=== PATIENT | male | born 1975 | race Caucasian/White ===

== ENCOUNTER 2017-04-16 04:32 | Emergency (ER) | payer MEDICAID, OTHER ==
[~2017-04-16] VITALS: Ht 180.3 cm; Wt 72.6 kg
[~2017-04-16 04:32] MED LIST: ESCI20TA PO; LITH300C2 PO; LURA80TA PO
[2017-04-16] MEDS ORDERED: GABA300C PO (04:45)
[2017-04-16] MEDS ORDERED: [UNRECOGNIZED DRUG - OTHER] (04:45)
[2017-04-16] MEDS ORDERED: [UNRECOGNIZED DRUG - REMARK] (04:45)
--- NOTE | 2017-04-16 04:50 | NUR ---
Pt to room and changed into gown. Pt c/o SI. sts his plan is to either "take all my pills" or "walk into traffic." Pt has previous SI attempt of walking into traffic. Pt denies HI. Pt denies visual hallucinations but admits to auditory hallucinations. Pt admits to daily etoh, approx 40oz daily. Admits to drug use. Last used meth 2 days ago. Pt calm and cooperative. Pt resting in position of comfort for self. Awaiting further eval.
[2017-04-16 05:28] LABS: BASOPHILS # (AUTO) 0.2 K/uL (0.0-8.0); BASOPHILS % (AUTO) 2.2 % (0.0-2.0); EOSINOPHILS # (AUTO) 0.1 K/uL (0.0-0.7); EOSINOPHILS % (AUTO) 1.3 % (0.0-7.0); HEMATOCRIT 38.4 % (40-50); HEMOGLOBIN 12.6 G/DL (14.0-18.0); LYMPHOCYTES # (AUTO) 2.4 K/UL (0.8-4.8); LYMPHOCYTES % (AUTO) 29.7 % (20.5-51.5); MEAN CORPUSCULAR HEMOGLOBIN 28.7 UUG (27.0-31.0); MEAN CORPUSCULAR HGB CONC 33 g/dL (32.0-37.0); MEAN CORPUSCULAR VOLUME 87.2 FL (82.0-92.0); MONOCYTES # (AUTO) 0.7 K/UL (0.1-1.30); MONOCYTES % (AUTO) 8.8 % (0.0-11.0); NEUTROPHILS # (AUTO) 4.7 K/UL (1.8-8.9); PLATELET COUNT (AUTO) 285 K/UL (150-450); WHITE BLOOD COUNT (AUTO) 8.1 K/UL (4.0-11.2)
[2017-04-16 05:48] LABS: ETHANOL < 3 MG/DL (0-0)
[2017-04-16 05:50] LABS: ALANINE AMINOTRANSFERASE 81 U/L (16-63); ALKALINE PHOSPHATASE 74 U/L (50-136); ASPARTATE AMINOTRANSFERASE 50 U/L (15-37); BILIRUBIN,DIRECT 0.2 mg/dL (0.0-0.2); BILIRUBIN,TOTAL 0.6 mg/dL (0.2-1.0); CARBON DIOXIDE 27 mmol/L (21-32); CHLORIDE 105 mmol/L (98-107); CREATININE 0.9 mg/dL (0.6-1.3); GLUCOSE 96 mg/dL (74-106); POTASSIUM 3.4 mmol/L (3.5-5.1); TOTAL PROTEIN, SERUM 6.7 g/dL (6.4-8.2); UREA NITROGEN, BLOOD 10 mg/dL (7-18)
[2017-04-16 05:52] LABS: ACETAMINOPHEN < 2.0 ug/mL (10-30)
--- NOTE | 2017-04-16 06:15 | NUR ---
Pt medically cleared by Dr. Leary
--- NOTE | 2017-04-16 06:33 | NUR ---
Jorge Arango contacted for PET evaluation, ETA 60 min.
--- NOTE | 2017-04-16 07:24 | NUR ---
Report given to MARION Diez. Relinquish care of pt at this time. Pt resting in position of comfort for self. Resp even and unlabored. No obvious signs of distress. Pt calm and cooperative. Awaiting PET eval.
--- NOTE | 2017-04-16 07:48 | NUR ---
Patient is resting comfortably in bed with eyes closed, NAD noted.
--- NOTE | 2017-04-16 08:05 | NUR ---
IRMA UPTON FROM PET CALLED AND STATED HE WILL COME TO EVALUATE PT IN 45 MIN. PROVIDED BREAKFAST BUT PT REMAINES SLEEPING.
--- NOTE | 2017-04-16 09:01 | NUR ---
PET CONTROL PANEL ASSEMBLER AT THE BEDSIDE FOR PSYCH EVAL. PT IS AWAKE AND COOPERATIVE.
--- NOTE | 2017-04-16 10:03 | NUR ---
PER IRMA UPTON PT WILL BE TX AND ADMITTED VOLONTARY TO [facility].
--- NOTE | 2017-04-16 10:04 | NUR ---
CALLED [facility] FOR TX. PT IS RESTING IN BED W/ BOTH EYES CLOSED.
--- NOTE | 2017-04-16 10:15 | NUR ---
REPORT GIVEN TO YARELY) AT THE FACILITY.
[2017-04-16 10:40] LABS: *BILIRUBIN,URIN NEGATIVE (NEGATIVE); *BLOOD, URINE NEGATIVE (NEGATIVE); *CLARITY,URINE CLEAR (CLEAR); *COLOR,URINE YELLOW (YELLOW); *KETONES,URINE NEGATIVE (NEGATIVE); *PROTEIN,URINE NEGATIVE (NEGATIVE); LEUKOCYTE ESTERASE ,URINE NEGATIVE (NEGATIVE); NITRITE, URINE NEGATIVE (NEGATIVE); PH,URINE 6.5 (5.0-8.0); UGLUCOSE NEGATIVE (NEGATIVE)
[2017-04-16 10:51] LABS: BACTERIA,URINE FEW /HPF (NONE SEEN); MUCUS,URINE FEW /LPF (0-FEW); RBC,URINE NONE SEEN /HPF (0-3); SQUAMOUS EPITHELIAL CELL,UR FEW /HPF (NONE SEEN); WBC,URINE 0-3 /HPF (0-3)
[2017-04-16 10:54] LABS: *AMPHETAMINE, URINE POSITIVE (NEGATIVE); *BARBITURATE, URINE NEGATIVE (NEGATIVE); *CANNABINOID, URINE NEGATIVE (NEGATIVE); *COCCAINE, URINE NEGATIVE (NEGATIVE); *OPIATE, URINE NEGATIVE (NEGATIVE); *PHENCYCLIDINE SCREEN,URINE NEGATIVE (NEGATIVE)
--- NOTE | 2017-04-16 11:22 | NUR ---
RECIEVED URINE RESULT AND FAXED TO [facility].
--- NOTE | 2017-04-16 11:35 | NUR ---
PER IRMA UPTON PT IS CLEARED BY INTAKE TO BE TX. CALLED [facility], ETA 45 MIN.
--- NOTE | 2017-04-16 12:46 | NUR ---
REPORT GIVEN TO EMT'S. PT LEFT ER IN STEADY CONDITION, ALL BELONGINGS SENT W/ PT.
[2017-04-16 12:48] VITALS: BP 144/77
== END 2017-04-16 12:49 | disposition short-term general hospital (02) ==
LOC: ER 04:35
DX: F15.90 Other stimulant use, unspecified, uncomplicated (principal); F31.9 Bipolar disorder, unspecified; F20.9 Schizophrenia, unspecified; F10.20 Alcohol dependence, uncomplicated; F19.10 Other psychoactive substance abuse, uncomplicated; Z59.0 Homelessness; Z86.19 Personal history of other infectious and parasitic diseases
CPT/HCPCS: 36415; 80307; 85025; A4663; G0480; G0480-TC

== ENCOUNTER 2017-06-28 22:40 | Emergency (ER) | payer MEDICAID, OTHER ==
[~2017-06-28] VITALS: Ht 180.3 cm; Wt 72.6 kg
[~2017-06-28 22:40] MED LIST changes: -ESCI20TA PO; +GABA300C PO; -LITH300C2 PO; -LURA80TA PO; +[UNRECOGNIZED DRUG - OTHER]; +[UNRECOGNIZED DRUG - REMARK]
--- NOTE | 2017-06-28 23:24 | NUR ---
Pt walked out of room and the ER after just being placed in room by triage nurse. Dr. Mcgee aware and charge nurse
--- NOTE | 2017-06-28 23:30 | NUR ---
Pt noted to have returned to room.
--- NOTE | 2017-06-28 23:40 | NUR ---
Pt seen walking out of ER after instructed to stay in his room.
--- NOTE | 2017-06-28 23:45 | NUR ---
Pt has not returned to room
--- NOTE | 2017-06-29 | NUR ---
Pt still not returned to room, not in waiting room, not in br and not located outside.
--- NOTE | 2017-06-29 00:05 | NUR ---
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
== END 2017-06-29 00:05 | disposition left against medical advice (07) ==
LOC: ER 22:40
DX: Z53.21 Procedure and treatment not carried out due to patient leaving prior to being seen by health care provider (principal)
CPT/HCPCS: A4663

== ENCOUNTER 2017-10-06 22:35 | Inpatient (IN) | payer MEDICAID ==
[~2017-10-06] VITALS: Ht 180.3 cm; Wt 81.2 kg
[2017-10-06] MEDS ORDERED: LITHIUM (23:28)
[2017-10-06] MEDS ORDERED: ABILIFY (23:28)
[2017-10-06] MEDS ORDERED: LEXAPRO (23:28)
[2017-10-06] MEDS ORDERED: ALBUTEROL SULFATE 2.5 MG/3 ML NEBU NEB ONE (23:45)
[2017-10-06] MEDS ORDERED: IBUPROFEN 800 MG TABLET PO ONE (23:45)
[2017-10-06] MEDS ORDERED: BENZONATATE 100 MG CAPSULE PO ONE (23:45)
--- NOTE | 2017-10-06 23:45 | NUR ---
Pt ambulated to room with steady gait. Pt c/o cough, fever and chills. Pt was seen at [facility] was diagnosed with PNA, received ABT but left AMA. Pt resting in position of comfort for self. Awaiting further eval.
--- NOTE | 2017-10-06 23:55 | NUR ---
Pt seen by Dr. Villanueva, pt medicated for discomfort and coughing, will monitor for effects of medication.
[2017-10-07] MEDS ORDERED: BENZONATATE 100 MG CAPSULE ONE (00:06)
[2017-10-07] MEDS ORDERED: IBUPROFEN 800 MG TABLET ONE (00:06)
[2017-10-07] MEDS ORDERED: ALBUTEROL SULFATE 2.5 MG/3 ML NEBU ONE (00:16)
[2017-10-07] MEDS ORDERED: IV NORMAL SALINE 1000 ML BAG IV ONE (00:45)
--- NOTE | 2017-10-07 00:58 | NUR ---
Pt refusing lab draw. Dr. Villanueva notified and to bedside to speak with pt
--- NOTE | 2017-10-07 01:30 | NUR ---
Pt resting in position of comfort for self, no obvious signs of distress at this time. Fluid bolus infusing freely to gravity.
[2017-10-07] MEDS ORDERED: ARIP10TA9 PO (01:36)
[2017-10-07] MEDS ORDERED: ESCI10TA PO (01:36)
[2017-10-07] MEDS ORDERED: ARIP5TAB10 PO (01:36)
[2017-10-07] MEDS ORDERED: LITH600C PO (01:36)
[2017-10-07] MEDS ORDERED: LORAZEPAM 2 MG/1 ML VIAL IV ONE (01:45)
[2017-10-07 01:47] LABS: BASOPHILS # (AUTO) 0.1 K/uL (0.0-8.0); BASOPHILS % (AUTO) 0.4 % (0.0-2.0); EOSINOPHILS % (AUTO) 0.1 % (0.0-7.0); HEMOGLOBIN 14.5 g/dL (12.5-16.3); LYMPHOCYTES # (AUTO) 2.3 K/uL (20.0-40.0); LYMPHOCYTES % (AUTO) 10.9 % (20.5-51.5); MEAN CORPUSCULAR HEMOGLOBIN 30.2 uug (23.8-33.4); MEAN CORPUSCULAR HGB CONC 35 g/dL (32.5-36.3); MEAN CORPUSCULAR VOLUME 87.6 fL (73.0-96.2); MONOCYTES # (AUTO) 2.9 K/uL (2.0-10.0); MONOCYTES % (AUTO) 13.7 % (0.0-11.0); NEUTROPHILS # (AUTO) 15.8 K/uL (1.8-8.9); NEUTROPHILS % (AUTO) 74.9 % (38.5-71.5); PLATELET COUNT (AUTO) 224 K/uL (152-348); RED BLOOD CELL COUNT(AUTO) 4.79 MIL/uL (4.06-5.63); WHITE BLOOD COUNT (AUTO) 21.1 K/uL (3.6-10.2)
[2017-10-07] MEDS ORDERED: LORAZEPAM 2 MG/1 ML VIAL ONE (01:57)
[2017-10-07 02:03] LABS: BILIRUBIN,DIRECT 0.2 mg/dL (0.0-0.2); POTASSIUM 4.2 mmol/L (3.5-5.1); TOTAL PROTEIN, SERUM 7.3 g/dL (6.4-8.2)
--- NOTE | 2017-10-07 03:44 | NUR ---
Pt had severe coughing fit that induced an episode of vomiting. Dr. Villanueva notified and pt medicated, will monitor for effects of medication.
[2017-10-07] MEDS ORDERED: ONDANSETRON 4 MG/2 ML VIAL IV ONE (03:45)
[2017-10-07] MEDS ORDERED: ONDANSETRON 4 MG/2 ML VIAL ONE (03:57)
[2017-10-07] MEDS ORDERED: HYDROCODONE BIT/HOMATROPINE 5 ML UDC PO ONE (04:00)
[2017-10-07] MEDS ORDERED: HYDROCODONE BIT/HOMATROPINE 5 ML UDC ONE (04:15)
--- NOTE | 2017-10-07 04:30 | NUR ---
Coughing has improved. Pt resting in position of comfort for self with eyes closed, resp even and unlabored. No obvious signs of distress at this time.
--- NOTE | 2017-10-07 05:36 | NUR ---
Report given to MARION Wilcox. Preparing to transfer pt to the floor.
[2017-10-07] MEDS ORDERED: ONDANSETRON 4 MG/2 ML VIAL IV PRN (05:45)
[2017-10-07] MEDS ORDERED: HYDROCODONE/APAP 5-325MG TABLET PO PRN (05:45)
[2017-10-07] MEDS ORDERED: MAGNESIUM HYDROXIDE 30 ML LIQUID UDC PO PRN (05:45)
[2017-10-07] MEDS ORDERED: ACETAMINOPHEN 325 MG TABLET PO PRN (05:45)
[2017-10-07] MEDS ORDERED: ZOLPIDEM 5 MG TABLET PO PRN (05:45)
[2017-10-07] MEDS ORDERED: ALBUTEROL SULFATE 2.5 MG/3 ML NEBU NEB PRN (05:45)
--- NOTE | 2017-10-07 05:55 | NUR ---
Recieved pt from [facility] Rn to rm 107 pt valuable list done by Mail Distribution Scheme Examiner v/s done admission report paper done. Side rails up Call ilight within reach. bed in lowest position wheels locked.
--- NOTE | 2017-10-07 07:00 | NUR ---
PT IS SLEEPING IN BED COMFORTABLY, NO S/S OF RESPIRATORY DISTRESS NOTED. ALL SAFETY NEEDS ARE MET. IV INTACT/PATENT. NO PAIN NOTED. PT IS AXO X 3, COOPERATIVE.
[2017-10-07 07:07] VITALS: BP 118/82
[2017-10-07 07:14] VITALS: BP 119/78
[2017-10-07] MEDS: PANTOPRAZOLE SODIUM 40 MG TABLET.DR PO SCH (08:16)
[2017-10-07] MEDS: AZITHROMYCIN IV 500 MG in IV DEXTROSE 5% 250 ML IV SCH (08:35)
[2017-10-07] MEDS ORDERED: ARIPIPRAZOLE 10 MG TABLET PO SCH (09:00)
[2017-10-07] MEDS ORDERED: LITHIUM CARBONATE 600 MG PO SCH (09:00)
[2017-10-07] MEDS: CEFTRIAXONE 1 G in IV DEXTROSE 5% 50 ML IV SCH (09:37)
[2017-10-07] MEDS: LITHIUM CARBONATE 300 MG CAPSULE PO SCH ×2 (11:26→17:23)
[2017-10-07] MEDS: ARIPIPRAZOLE 10 MG TABLET PO SCH (13:08)
[2017-10-07] MEDS: ESCITALOPRAM OXALATE 10 MG TABLET PO SCH (13:08)
--- NOTE | 2017-10-07 14:00 | NUR ---
PT REFUSES TO HAVE NC, ENCOURAGE THE PT TO TAKE DEEP BREATHS.
--- NOTE | 2017-10-07 14:01 | NUR ---
the patient and the mother asked about the psych plan of care for the pt. Tried to find out more information from Crisis team note from [facility]. It states that the patient is a "59 year old female". Called nurse air cargo ground operations supervisor to assist in finding out the status of the pt since the note mentioning [id number] status, but there's no [paperwork in regards of the patient's hold. Paged [facility], left voice message to clarify the note and the patient status, whether or not there is a hold for the patient.
[2017-10-07 15:00] VITALS: BP 119/78
[2017-10-07] MEDS: IV NS 1000 ML 1,000 ML IV PRN (15:44)
[2017-10-07 16:34] LABS: *BILIRUBIN,URIN NEGATIVE (NEGATIVE); *BLOOD, URINE NEGATIVE (NEGATIVE); *CLARITY,URINE SLIGHTLY CLOUDY (CLEAR); *COLOR,URINE YELLOW (YELLOW); *KETONES,URINE NEGATIVE (NEGATIVE); *PROTEIN,URINE NEGATIVE (NEGATIVE); LEUKOCYTE ESTERASE ,URINE NEGATIVE (NEGATIVE); NITRITE, URINE NEGATIVE (NEGATIVE); UGLUCOSE NEGATIVE (NEGATIVE)
[2017-10-07 16:48] LABS: BACTERIA,URINE NONE SEEN /HPF (NONE SEEN); RBC,URINE 0-3 /HPF (0-3); SQUAMOUS EPITHELIAL CELL,UR NONE SEEN /HPF (NONE SEEN); WBC,URINE 0-3 /HPF (0-3)
--- NOTE | 2017-10-07 18:00 | NUR ---
[facility], PSYCH DOCTOR IS AWARE ABOUT THE PT'S PSYCH CONSULT, THE PT HAS BEEN COOPERATIVE AND CALM THROUGHOUT THE SHIFT. SLEPT FOR APPROXIMATELY FOR 8 HOURS.
--- NOTE | 2017-10-07 19:05 | NUR ---
PT IS LAYING IN BED COMFORTABLY, NO S/S OF RESPIRATORY DISTRESS NOTED. ALL SAFETY NEEDS ARE MET. IV INTACT/PATENT, INFUSING NS. NO PAIN NOTED. PT IS AXO X 3, COOPERATIVE. NO OTHER CHANGES NOTED.
[2017-10-07] MEDS ORDERED: ARIPIPRAZOLE 5 MG TABLET PO SCH (21:00)
[2017-10-07] MEDS: ARIPIPRAZOLE 5 MG TABLET PO SCH (21:16)
--- NOTE | 2017-10-08 00:55 | NUR ---
Pt lying in bed eyes closed resp even and unlabored Iv N.S. 0.9% infusing @ 75 cc hr to to right ac no edema or redness noted. Denies of any distress. side rails up call light within reach bed in lowest position. wheels locked.
[2017-10-08] MEDS: PANTOPRAZOLE SODIUM 40 MG TABLET.DR PO SCH (06:33)
--- NOTE | 2017-10-08 06:44 | NUR ---
Lying in bed eyes closed resp even and unlabored Iv N.S 09% ifusing @ 100 cc hr without any diffculty. siderail up call light within reach.
[2017-10-08] MEDS: ESCITALOPRAM OXALATE 10 MG TABLET PO SCH (08:11)
[2017-10-08] MEDS: AZITHROMYCIN IV 500 MG in IV DEXTROSE 5% 250 ML IV SCH (08:11)
[2017-10-08] MEDS: LITHIUM CARBONATE 300 MG CAPSULE PO SCH ×2 (08:12→16:51)
[2017-10-08] MEDS: ARIPIPRAZOLE 10 MG TABLET PO SCH (08:14)
--- NOTE | 2017-10-08 10:00 | NUR ---
pt seen on rounding. pt sleeping interminently. changed iv dressign to maintain patent iv site. pt vitals stable. pt has productive cough. pt iv running. no sob noted. pt requests to have ativan given. dr vuong seen the patient. pt is clear to be discharged if needed. no hold needed. states that the patient exhibits withdrawals and would add ativan. did not the put the order in the computer. contacted [facility] and asked for number. does not answer. pt also waiting to be discharged by dr burroughs. told pt that md will make his rounds. seen patient with dilated pupils. will continue to monitor.
[2017-10-08] MEDS: CEFTRIAXONE 1 G in IV DEXTROSE 5% 50 ML IV SCH (10:22)
[2017-10-08 11:25] VITALS: BP 96/61
[2017-10-08] MEDS: IV NS 1000 ML 1,000 ML IV PRN (15:10)
[2017-10-08] MEDS: LORAZEPAM 0.5 MG TABLET PO PRN (16:51)
[2017-10-08 17:00] VITALS: BP 112/81
--- NOTE | 2017-10-08 17:04 | NUR ---
PT RECEIVED FROM [facility] VIA WHEEL CHAIR IN STABLE CONDITION.
--- NOTE | 2017-10-08 18:00 | NUR ---
PT REFUSED TO START THE I/V FLUID MD MADE AWARE.
--- NOTE | 2017-10-08 19:15 | NUR ---
RECEIVED PATIENT ALERT ORIENTED, NO SOB NO CHEST PAIN, WITH EPISODES OF NON PRODUCTIVE COUGH, PATIENT HAS NO IV LINE, REFUSED IV HYDRATION, CONT TO MONITOR.
[2017-10-08] MEDS: ARIPIPRAZOLE 5 MG TABLET PO SCH (20:13)
[2017-10-08 20:25] VITALS: BP 115/76
--- NOTE | 2017-10-09 | NUR ---
PATIENT AWAKE ALERT ORIENT, NO SOB NO CHEST PAIN NOTED, WITH ON AND OFF NON PRODUCTIVE COUGH, RESPIRATION EVEN AND UNLABORED, OXYGEN SAT WNL, NO COMPLAIN OF PAIN AT THIS TIME. OFFERED TO START IV LINE STILL REFUSED, CONT TO OFFER.
--- NOTE | 2017-10-09 06:07 | NUR ---
PATIENT SLEPT MOST OF THE NIGHT, NO SOB NO CHEST PAIN NOTED, NO FURTHER EPISODE OF COUGHING NOTED, CONT TO REFUSED IV INSERTION, NO IV FLUIDS GIVEN, ALERT ORIENTED, RESPECT PATIENT WISHES.
[2017-10-09] MEDS: PANTOPRAZOLE SODIUM 40 MG TABLET.DR PO SCH (06:32)
[2017-10-09 06:34] LABS: BASOPHILS # (AUTO) 0.1 K/uL (0.0-8.0); BASOPHILS % (AUTO) 0.7 % (0.0-2.0); EOSINOPHILS # (AUTO) 0.3 K/uL (0.0-0.7); EOSINOPHILS % (AUTO) 2.9 % (0.0-7.0); HEMATOCRIT 43.3 % (36.7-47.1); HEMOGLOBIN 14.7 g/dL (12.5-16.3); LYMPHOCYTES # (AUTO) 2.1 K/uL (20.0-40.0); LYMPHOCYTES % (AUTO) 22.4 % (20.5-51.5); MEAN CORPUSCULAR HEMOGLOBIN 30.4 uug (23.8-33.4); MEAN CORPUSCULAR HGB CONC 34 g/dL (32.5-36.3); MEAN CORPUSCULAR VOLUME 89.7 fL (73.0-96.2); MONOCYTES # (AUTO) 1.1 K/uL (2.0-10.0); MONOCYTES % (AUTO) 11.3 % (0.0-11.0); NEUTROPHILS # (AUTO) 5.9 K/uL (1.8-8.9); NEUTROPHILS % (AUTO) 62.7 % (38.5-71.5); PLATELET COUNT (AUTO) 262 K/uL (152-348); RED BLOOD CELL COUNT(AUTO) 4.83 MIL/uL (4.06-5.63); WHITE BLOOD COUNT (AUTO) 9.5 K/uL (3.6-10.2)
[2017-10-09 06:35] LABS: CREATININE 0.9 mg/dL (0.6-1.3); POTASSIUM 4.3 mmol/L (3.5-5.1)
[2017-10-09 06:49] VITALS: BP 120/74
[2017-10-09] MEDS: AZITHROMYCIN IV 500 MG in IV DEXTROSE 5% 250 ML IV SCH ×2 (08:00→10:36)
--- NOTE | 2017-10-09 08:30 | NUR ---
AWAKE ALERT NO SOB OR PAIN STILL COUGHING EAT BREAKFAST MOD AMT RESTING WITH CALL LIGHT IN REACH
[2017-10-09] MEDS: ARIPIPRAZOLE 10 MG TABLET PO SCH ×2 (08:58→10:32)
[2017-10-09] MEDS: ESCITALOPRAM OXALATE 10 MG TABLET PO SCH ×2 (08:59→10:33)
[2017-10-09] MEDS: CEFTRIAXONE 1 G in IV DEXTROSE 5% 50 ML IV SCH ×2 (08:59→10:35)
[2017-10-09] MEDS: LITHIUM CARBONATE 300 MG CAPSULE PO SCH ×2 (08:59→10:34)
--- NOTE | 2017-10-09 09:00 | NUR ---
REFUSED TO TAKE AM MEDICATION AND START IV SITE TO GIVE MED ANTIBIOTICS AT THIS TIME
--- NOTE | 2017-10-09 09:30 | NUR ---
PUT HIM ON AIRBORN ISOLATION FROM RECORD OF [facility] HE HAVE ACTIVE TB AND PCMH SPECIALIST WAS INFORM TO TRANSFER PATIENT TO [facility] AND NEED NEGATIVE AIR PRESSURE ISOLATION ROOM AND PATIENT WAS INFORM OF TRANSFER TODAY
[2017-10-09] MEDS: LORAZEPAM 0.5 MG TABLET PO PRN (10:35)
[2017-10-09] MEDS ORDERED: AZIT1PAC PO (10:45)
--- NOTE | 2017-10-09 11:00 | NUR ---
START NEW IV LINE FOR ANTIBIOTICS #20 RT AC AND CONTINUE ANTIBIOTICS ORDER
--- NOTE | 2017-10-09 11:30 | NUR ---
SPUTUM SENT TO LAB ORDER
[2017-10-09 11:54] VITALS: BP 116/77
--- NOTE | 2017-10-09 12:00 | NUR ---
D/C SHEET SIGNS REPORT GIVEN TO NURSE NICOLE VIA TEL
--- NOTE | 2017-10-09 12:35 | NUR ---
CONVERT IV TO HL AND D/C TRANSFER PATIENT TO [facility] VIA AMBULANCE CONDITION STABLE NO FEVER OR SOB OR PAIN
== END 2017-10-09 12:45 | disposition short-term general hospital (02) | DRG 720 ==
LOC: ER 22:36 → MEDSURG1 10-07 05:03 → MED 10-08 17:01
PROVIDERS: ADMIT Internal Medicine; ATTEND Internal Medicine
DX: A41.9 Sepsis, unspecified organism (principal); J15.9 Unspecified bacterial pneumonia; Z59.0 Homelessness; E78.5 Hyperlipidemia, unspecified; Z87.891 Personal history of nicotine dependence; R74.0 Nonspecific elevation of levels of transaminase and lactic acid dehydrogenase [LDH]; F31.63 Bipolar disorder, current episode mixed, severe, without psychotic features; F15.10 Other stimulant abuse, uncomplicated; F19.11 Other psychoactive substance abuse, in remission; Z86.19 Personal history of other infectious and parasitic diseases
CPT/HCPCS: 36415; 70030-TC; 71010; 83605; 85025; 85730; 87040; 87070; 87086; 87400; 93005; A4663; J0456; J0696; J2060; J2405; J7030; J7040; J7060